=== PATIENT | female | born 1975 | race Caucasian/White ===

== ENCOUNTER 2021-03-13 17:04 | Emergency (ER) | payer OTHER ==
[2021-03-13 18:18] LABS: HEMOGLOBIN 13.7 gm/dl (12.3-15.3); RED BLOOD COUNT 4.59 M/UL (4.00-5.10); WHITE BLOOD COUNT 10.1 K/UL (4.5-11.0)
[2021-03-13 18:39] LABS: BUN/CREATININE RATIO 16 (0-10)
== END 2021-03-13 20:52 | disposition home or self-care (01) ==
LOC: ER1 17:04
PROVIDERS: Family Medicine
DX: F41.9 Anxiety disorder, unspecified (principal); R11.10 Vomiting, unspecified; R68.83 Chills (without fever); Z20.822 Contact with and (suspected) exposure to COVID-19; Z88.8 Allergy status to other drugs, medicaments and biological substances; Z79.899 Other long term (current) drug therapy; Z90.710 Acquired absence of both cervix and uterus
CPT/HCPCS: 0240U; 80053; 81001; 82550; 82553; 83690; 83874; 84484; 85025; 93005; 96374; 99284; J2405; J7030; Q0177